=== PATIENT | female | born 2000 | race Two or more races ===

== ENCOUNTER 2024-09-16 16:32 | Emergency (ER) | payer MEDICAID, SELFPAY ==
[2024-09-16 16:49] VITALS: BP 125/81; PULSE 91; RESP 20; TEMP 36.7; O2SAT 99; BMI 32.8
--- NOTE | 2024-09-16 16:56 | XR_ITS ---
Examination: Foot, right, 3 views Technique: AP, oblique, lateral views foot, 3 views Date and time of exam: September 16, 2024 1700 hours INDICATIONS: Injury to the foot today, foot pain FINDINGS: No acute fracture No dislocation No foreign body IMPRESSION: No acute fracture
--- NOTE | 2024-09-16 16:57 | PD.EDRME ---
Rapid Medical Screening Exam RME Arrival date/time: 09/16/24 16:32 24-year-old female presents emergency department today with complaints of foreign body right foot patient believes she has a toothpick embedded in her foot Chief Complaint: Ankle/Foot Injury Time Seen by Provider: 09/16/24 16:36 Vital signs: Vital Signs Temperature 98.1 F 09/16/24 16:49 Pulse Rate 91 09/16/24 16:49 Respiratory Rate 20 09/16/24 16:49 Blood Pressure 125/81 09/16/24 16:49 Pulse Oximetry (%) 99 09/16/24 16:49 Oxygen Delivery Method Room Air 09/16/24 16:49
[2024-09-16] MEDS: HYDROcodone/APAP 5/325 TABLET 1 TAB PO (17:25)
--- NOTE | 2024-09-16 19:45 | PD.EDANKLE ---
Lower Extremity Injury RME/HPI General Chief Complaint: Ankle/Foot Injury Stated Complaint: STABBED RIGHT FOOT WITH TOOTHPICK Time Seen by Provider: 09/16/24 16:36 Arrival date/time: 09/16/24 16:32 24-year-old female no significant past medical history presents emergency department complaining of foreign body to right foot after stepping on a wooden toothpick that occurred earlier today. Patient reports up-to-date with her tetanus vaccine. Mode of arrival: wheelchair Limitations: physical limitation RME / HPI RME / HPI Narrative: 09/16/24 16:32 24-year-old female presents emergency department today with complaints of foreign body right foot patient believes she has a toothpick embedded in her foot Related Data Home Medications ?Medication ?Instructions ?Recorded ?Confirmed prenat.vits,itzel,ool-hoto-egyax 1 tab PO QDAY 03/06/22 06/30/22 Previous Rx's ?Medication ?Instructions ?Recorded lanolin 50 % topical ointment 1 applic topical TID PRN skin 07/02/22 irritation #15 tubes ibuprofen 600 mg tablet 600 mg PO Q8H PRN pain #20 tabs 09/16/24 Allergies Allergy/AdvReac Type Severity Reaction Status Date / Time No Known Allergies Allergy Verified 09/16/24 16:34 Review of Systems Review of Systems Systems Reviewed: All systems reviewed, normal except as documented Constitutional Constitutional: Reports system reviewed and no additional complaints, except as documented, Denies body ache(s), Denies chills and Denies fever(s) Eyes Eyes: Reports system reviewed and no additional complaints, except as documented and Denies change in vision ENT Ears, Nose, Mouth, and Throat: Reports system reviewed and no additional complaints, except as documented, Denies disequilibrium, Denies dizziness, Denies sore throat and Denies vertigo Cardiovascular Cardiovascular: Reports system reviewed and no additional complaints, except as documented, Denies chest pain and Denies dyspnea Respiratory Respiratory: Reports system reviewed and no additional complaints, except as documented, Denies chest congestion, Denies cough and Denies dyspnea Gastrointestinal Gastrointestinal: Reports system reviewed and no additional complaints, except as documented, Denies abdominal pain, Denies nausea and Denies vomiting Musculoskeletal Musculoskeletal: Reports system reviewed and no additional complaints, except as documented, Denies abnormal gait and Denies arthralgias Integumentary/Breasts Skin/Breast: Reports system reviewed and no additional complaints, except as documented, Denies erythema, Denies rash and Reports wounds Neurologic Neurologic: Reports system reviewed and no additional complaints, except as documented, Denies abnormal gait, Denies disequilibrium, Denies dizziness and Denies vertigo Past Medical History Past Medical History NEUROLOGIC: Negative Neurological Disorders or Seizures CARDIAC: Negative Cardiac Disorders or Congestive Heart Failure RESPIRATORY: Negative Chronic Obstructive Pulmonary Disease (COPD) or Asthma GASTROINTESTINAL: Negative Gastrointestinal Disorders or Hepatitis GENITOURINARY: Negative Genitourinary Disorders or Renal Disease MUSCULOSKELETAL: Negative Musculoskeletal Disorders ENDOCRINE: Negative Endocrine Disorders, Diabetes Mellitus Type 1 or Diabetes Mellitus Type 2 HEMATOLOGIC: Negative Blood Disorders or Sickle Cell Disease OTHER HISTORY: Negative Hospitalization, Autoimmune Disease, Down Syndrome, Developmental Delay, Shingles, Falls, Blood Transfusions, Anesthesia Reactions, MRSA, VRSA, Vancomycin-Resistant Enterococci, Human Immunodeficiency Virus (HIV), Chicken Pox, Measles, Mumps, Rubella (Indian Measles), Pertussis, Clostridium Difficile or Cancer Family History FAMILY HISTORY: Positive Family Surgery (MATERNAL AUNT- STOMACH TUMOR REMOVAL. C/S,); Negative Family Psychiatric Problems, Family Respiratory Disorders, Family Cardiac Disorders, Family Gastrointestinal Problems, Family Cancer or Family Anesthesia Reaction Social History SMOKING STATUS: Never smoker SECOND HAND EXPOSURE: No ED Exam General Limitations: Present physical limitation General appearance: Present alert and in no apparent distress Head Head exam: Present atraumatic Eye Eye exam: Present normal appearance, PERRL and EOMI ENT ENT exam: Present normal exam, normal oropharynx and mucous membranes moist Neck Neck exam: Present normal inspection, full ROM and trachea midline Chest Chest inspection: Present normal inspection and symmetric chest wall rise Respiratory Respiratory exam: Present normal lung sounds bilaterally Cardiovascular Cardiovascular exam: Present regular rate, normal rhythm and normal heart sounds Abdominal Exam Abdominal exam: Present soft and normal bowel sounds Extremities Exam Extremities exam: Present normal inspection and full ROM Expanded Lower Extremity Exam Bottom foot image: 1. Small 2 mm opening possibly from entry wound from toothpick. Neurovascular/Tendon exam: Present normal capillary refill Gait: observed and limited by pain Back Exam Back exam: Present normal inspection and full ROM Neurological Exam Neurological exam: Present alert, oriented X3 and CN II-XII intact Psychiatric Psychiatric exam: Present normal affect and normal mood Skin Skin exam: Present warm, dry, intact and normal color Course Quality Measures none Orders Category Date Time Status Crutches .NOW Care 09/16/24 19:52 Active XR foot comp RT min 3V Stat Exams 09/16/24 16:56 Completed HYDROcodone*/APAP 5/325 [[place] 5/325] Med 09/16/24 16:56 Discontinued 1 tab PO X1 ONE Vital Signs Vital signs: Vital Signs Temperature 98.1 F 09/16/24 16:49 Pulse Rate 91 09/16/24 16:49 Respiratory Rate 20 09/16/24 16:49 Blood Pressure 125/81 09/16/24 16:49 Pulse Oximetry (%) 99 09/16/24 16:49 Oxygen Delivery Method Room Air 09/16/24 16:49 99% room air within normal limits Extremity Injury, Lower MDM Narrative MDM Narrative:: 24-year-old female no significant past medical history presents emergency department complaining of foreign body to right foot after stepping on a wooden toothpick that occurred earlier today. Patient reports up-to-date with her tetanus vaccine. On exam right plantar foot small 2 mm opening observed but unable to see end of toothpick to safely dislodge it. Patient does have some pain and tenderness to palpation. Foreign body was not seen on x-ray. No obvious signs of infection. Patient's right foot is neurovascularly intact. Case discussed with attending Dr. Monzon recommends discharge with no antibiotics and follow-up with primary care provider. Patient given crutches and instructed to have close follow-up with primary care provider and return to emergency department for any worsening signs of infection or as needed. Patient data External records reviewed:: [facility] previous records Clinical information provided by:: patient Social determinants that could affect healthcare access:: none Patient has the following chronic illnesses:: See chart How is presenting disease/condition affected by chronic disease/condition?: uneffected by Evaluation data The following diagnostics were reviewed and interpreted by me:: radiology exam(s) Lab and/or radiology exams considered but not ordered:: Ordered Interpretation Summary: Interpreted by me Medications / Prescriptions Medications or Prescriptions considered but not ordered:: Ordered Medication administrations:: Medication Administration History Discontinued Medications Hydrocodone Bitart/Acetaminophen (Hydrocodone/Apap 5/325 Tablet) 1 tab PO X1 ONE Stop: 09/16/24 16:57 Last Admin: 09/16/24 17:25 Dose: 1 tab Documented By: Given Consultations Consultation(s) initiated? (list below): No Diagnosis Extremity Injury, Lower Differential Diagnosis: other (Cellulitis, foreign body) Most likely diagnosis given after review of the tests above:: Foreign body foot Admission Indicated Admission indicated?: not indicated Admission Request Was there a request for admission?: No Disposition Plan Disposition Plan: Discharge Discharge Attestation Discharge Attestation: The patient and all family members were given an opportunity to ask questions and understood the discharge instructions. Discharge instructions specifically effects, indications for sooner follow up or return to the emergency department, and the expected course of current diagnosis. Patient condition: Stable Discharge Plan Plan Patient Disposition: HOME (Self Care) Disposition Comment: Stable Prescriptions/Referrals Prescriptions/Med Rec: New ibuprofen 600 mg tablet 600 mg PO Q8H PRN (Reason: pain) Qty: 20 0RF No Action prenat.vits,itzel,[id number] Tablet 1 tab PO QDAY lanolin 50 % ointment 1 applic topical TID PRN (Reason: skin irritation) Qty: 15 0RF Referrals: Teena Cartagena PA-C [Primary Care Provider] - In 1 week Problem List Clinical Impression: Foreign body in foot Patient/Caregiver Discharge Instructions Discharge Activity: activity as tolerated Education Materials: ED Foreign Body Soft Tissue Additional Instructions: Take ibuprofen as needed for pain. Monitor right foot closely for any signs of infection. Follow-up with primary care provider in 24 to 40 hours. Return to emergency department for any worsening symptoms or as needed. Print Language: Sami Stand Alone Forms: Anita Award Info., Patient Portal Info Letter COY/BAO Supervising Physician COY/BAO Supervising Physician: Dr. Monzon
== END 2024-09-16 21:00 | disposition home or self-care (01) ==
PROVIDERS: Emergency Provider Emergency Medicine; PCP Physician Assistant
DX: S90.851A Superficial foreign body, right foot, initial encounter (principal); W45.8XXA Other foreign body or object entering through skin, initial encounter
CPT/HCPCS: 73630; 99283; A9270

== ENCOUNTER 2024-09-21 09:48 | Observation (INO) | payer MEDICAID, SELFPAY ==
[2024-09-21] VITALS (9 sets, daily range): BP systolic 102–131; BP diastolic 68–87; PULSE 73–161; RESP 15–25; TEMP 36.3–37.4; O2SAT 99–100; BMI 32.8; BMI 27.7
--- NOTE | 2024-09-21 10:18 | PD.EDRME ---
Rapid Medical Screening Exam RME Arrival date/time: 09/21/24 09:48 24-year-old female presents emergency department today stating that 5 days ago she punctured her foot with a toothpick patient was seen here in the emergency department was given prescription for antibiotics but reports symptoms worsened Chief Complaint: Extremity Injury, Lower Time Seen by Provider: 09/21/24 10:02 Vital signs: Vital Signs Temperature 98.3 F 09/21/24 10:01 Pulse Rate 89 09/21/24 10:01 Respiratory Rate 18 09/21/24 10:01 Blood Pressure 116/79 09/21/24 10:01 Pulse Oximetry (%) 100 09/21/24 10:01 Oxygen Delivery Method Room Air 09/21/24 10:01
[2024-09-21 12:14] LABS: Lactate (Lactic Acid) 1.1 mMol/L (0.4-2.0)
[2024-09-21 12:19] LABS: Basophils % (Auto) 0 % (0-2.5); Eosinophils # (Auto) 0.1 Thou/mm3 (0.0-0.5); Eosinophils % (Auto) 1 % (0-10); Hematocrit 37.5 % (36.0-46.0); Hemoglobin 12.7 g/dL (12.0-16.0); Immature Granulocytes % (Auto) 0 % (0-0); Immature Granulocytes Auto 0.04 Thou/mm3 (0.00-0.00); Lymphocytes # (Auto) 2.6 Thou/mm3 (1.0-4.8); Lymphocytes % (Auto) 25 % (10-50); Mean Corpuscular HGB Conc 33.9 g/dl (31.0-37.0); Mean Corpuscular Hemoglobin 28.5 pg (25.0-35.0); Mean Corpuscular Volume 84 fL (80-100); Monocytes # (Auto) 0.7 Thou/mm3 (0.0-0.8); Monocytes % (Auto) 7 % (0-12); Neutrophils # (Auto) 6.8 Thou/mm3 (1.8-7.7); Neutrophils % (Auto) 67 % (37-80); Nucleated Red Blood Cell % 0 /100 WBC (0); Platelet Count 388 Thou/mm3 (140-440); RDW Standard Deviation 39.8 fL (36.4-46.3); Red Blood Count 4.46 Miln/mm3 (4.00-5.20); White Blood Count 10.3 Thou/mm3 (3.6-11.0)
--- NOTE | 2024-09-21 12:27 | PD.EDLOWEX ---
Lower Extremity Injury RME/HPI General Chief Complaint: Extremity Injury, Lower Stated Complaint: R FOOT SWELLING X 5 DAYS Time Seen by Provider: 09/21/24 10:02 Arrival date/time: 09/21/24 09:48 RME / HPI RME / HPI Narrative: 09/21/24 09:48 24-year-old female presents emergency department today stating that 5 days ago she punctured her foot with a toothpick patient was seen here in the emergency department was given prescription for antibiotics but reports symptoms worsened DR. FAJARDO MAIN ED EVALUATION: 24 year old female presents to the Emergency Department with complaint of right foot swelling with associated pain onset 5 days; she punctured her foot 5 days ago and was seen here and discharged with antibiotics but symptoms have not improved. Symptoms are moderate. Related Data Home Medications ?Medication ?Instructions ?Recorded ?Confirmed prenat.vits,itzel,[id number] 1 tab PO QDAY 03/06/22 06/30/22 Previous Rx's ?Medication ?Instructions ?Recorded lanolin 50 % topical ointment 1 applic topical TID PRN skin 07/02/22 irritation #15 tubes ibuprofen 600 mg tablet 600 mg PO Q8H PRN pain #20 tabs 09/16/24 Allergies Allergy/AdvReac Type Severity Reaction Status Date / Time vancomycin Allergy Severe Hives Verified 09/21/24 15:33 Review of Systems Review of Systems Systems Reviewed: All systems reviewed, normal except as documented Narrative Review of Systems: GEN: No fever, no chills, no weight loss EYES: No discharge, no visual changes, no pain HEENT: No ear pain, no congestion, no sore throat PULM: No shortness of breath, no cough, no congestion CV: No chest pain, no dyspnea on exertion, no palpitations GI: No nausea, no vomiting, no diarrhea, no pain, no constipation : No frequency, no urgency and no dysuria MUSC/SKEL: + right foot swelling with associated pain, no back pain SKIN: No rash PSYCH: No hallucinations, no depression HEME/LYMPH: No easy bleeding or bruising tendencies NEURO: No weakness, no headache Past Medical History Past Medical History NEUROLOGIC: Negative Neurological Disorders or Seizures CARDIAC: Negative Cardiac Disorders or Congestive Heart Failure RESPIRATORY: Negative Chronic Obstructive Pulmonary Disease (COPD) or Asthma GASTROINTESTINAL: Negative Gastrointestinal Disorders or Hepatitis GENITOURINARY: Negative Genitourinary Disorders or Renal Disease MUSCULOSKELETAL: Negative Musculoskeletal Disorders ENDOCRINE: Negative Endocrine Disorders, Diabetes Mellitus Type 1 or Diabetes Mellitus Type 2 HEMATOLOGIC: Negative Blood Disorders or Sickle Cell Disease OTHER HISTORY: Negative Hospitalization, Autoimmune Disease, Down Syndrome, Developmental Delay, Shingles, Falls, Blood Transfusions, Anesthesia Reactions, MRSA, VRSA, Vancomycin-Resistant Enterococci, Human Immunodeficiency Virus (HIV), Chicken Pox, Measles, Mumps, Rubella ([place] Measles), Pertussis, Clostridium Difficile or Cancer Family History FAMILY HISTORY: Positive Family Surgery; Negative Family Psychiatric Problems, Family Respiratory Disorders, Family Cardiac Disorders, Family Gastrointestinal Problems, Family Cancer or Family Anesthesia Reaction Social History SMOKING STATUS: Never smoker SECOND HAND EXPOSURE: No ED Exam Narrative Physical exam: GENERAL APPEARANCE: alert and oriented x 4, well-developed, well-nourished VITALS: All vitals were reviewed and the pulse ox is 100% on room air, which is normal according to my interpretation. HEENT: Normocephalic, atraumatic; pupils equal, round, reactive to light; EOMI; mucous membranes pink, moist; oropharynx clear NECK: Supple LUNGS: CTABL; no wheezes, no rales, no rhonchi HEART: Regular rate, regular rhythm; normal S1, S2; no murmurs ABDOMEN: non distended; normal BS; soft, no tenderness, no guarding, no rebound; no masses, no organomegaly, no hernia BACK: no CVA tenderness EXTREMITIES: right foot swelling NEUROLOGIC: awake; alert and oriented x4; cranial nerves II-XII grossly intact; no focal sensory or motor deficits PSYCHIATRIC: appropriate mood and affect SKIN: warm, dry, normal color; no rashes Course Quality Measures none Orders Category Date Time Status CT Screening NOW Care 09/21/24 13:05 Active EKG (ED ONLY) *Do not use* NOW Care 09/21/24 14:50 Completed Insert IV NOW Care 09/21/24 12:[address] LE RT w con Stat Exams 09/21/24 13:05 Completed EKG (ED Only) Stat Exams 09/21/24 14:50 Draft Blood Culture (Lab) Stat Lab 09/21/24 11:58 Received CBC Stat Lab 09/21/24 11:58 Completed CMP [Comprehensive Metabolic Panel] Stat Lab 09/21/24 11:58 Completed ESR [Sed Rate (ESR)] Stat Lab 09/21/24 11:58 Completed Lactate (Lactic Acid) Stat Lab 09/21/24 11:58 Completed Procalcitonin Stat Lab 09/21/24 11:58 Completed Urinalysis Stat Lab 09/21/24 15:21 Completed Urine Culture Stat Lab 09/21/24 11:38 Received DiphenhydrAMINE INJ [Benadryl Inj] Med 09/21/24 14:43 Discontinued 50 mg IVP X1 ONE MethylPREDNISolone. [SoluMEDROL Inj] Med 09/21/24 14:51 Discontinued 125 mg IVP X1 ONE MethylPREDNISolone. [SoluMEDROL Inj] Med 09/21/24 14:49 Discontinued 40 mg IVP X1 ONE Piper/Tazo 3.375 gm [Zosyn] Med 09/21/24 11:38 Discontinued 3.375 gm in 50 ml IV X1 Vancomycin Inj 1,000 mg Med 09/21/24 11:39 Discontinued Sodium Chloride 0.9% 250 ml [Ns] 250 ml IV X1 Vital Signs Vital signs: Vital Signs Temperature 98.3 F 09/21/24 10:01 Pulse Rate 89 09/21/24 10:01 Respiratory Rate 18 09/21/24 10:01 Blood Pressure 116/79 09/21/24 10:01 Pulse Oximetry (%) 100 09/21/24 10:01 Oxygen Delivery Method Room Air 09/21/24 10:01 Extremity Injury, Lower MDM Narrative MDM Narrative:: IJeaneth am scribing for and in the presence of Dr. Fajardo. Patient data External records reviewed:: [facility] previous records (Reviewed last ED visit dated 09/16/24, discharged with the following: Foreign body in foot) Clinical information provided by:: patient Social determinants that could affect healthcare access:: none Patient has the following chronic illnesses:: Denies any PMHx, surgeries, daily medications, or known allergies. How is presenting disease/condition affected by chronic disease/condition?: no chronic disease Evaluation data The following diagnostics were reviewed and interpreted by me:: lab results, radiology exam(s) and EKG tracing(s) (EKG done at 1456 hours: sinus tachycardia, rate 102, QTc 466,) Lab and/or radiology exams considered but not ordered:: none Interpretation Summary: Procedure(s): CT LE RT w con Accession Number(s): [id number] cc: Murray Correa MD; Gladis Barnes MD; Sidney Dhaliwal MD~ Examination: CT right ankle, with intravenous contrast. 2-D sagittal reconstructions. 2-D coronal reconstructions. 3-D reconstructions. Date and time of exam:September 21, 2024 1345 hrs. Indications: Redness swelling and pain beginning 6 days ago CTDI: vol (mGy):3.73 DLP: (mGycm):111 Technique: Multiple 1.25 mm axial sections of the right ankle with intravenous contrast, 50 cc Isovue-370 have been obtained. 2-D sagittal and coronal reconstructions have been obtained. 3-D reconstructions have been obtained. Low dose protocols were performed. One or more of the following dose reduction techniques were used; automated exposure control, adjustment of the mA and/or KV according to patient size, use of iterative reconstruction technique. Findings: Edema in the subcutaneous fatty tissues surrounding the foot and ankle, especially on the lateral side No soft tissue abscess or hematoma No cortical bone erosion Impression: No occult fracture or avascular necrosis or cortical bone destruction However, MRI foot without contrast follow-up would best assess for bone marrow edema, occult fracture, stress fracture as well as ligamentous and tendon abnormality Dictated By: Sidney Dhaliwal MD Medications / Prescriptions Medications or Prescriptions considered but not ordered:: none Medication administrations:: Medication Administration History Acetaminophen (Acetaminophen 325 Mg Tablet) 650 mg PO Q6H PRN PRN Reason: Fever >101.5 Stop: 10/21/24 15:11 Acetaminophen (Acetaminophen Supp 650 Mg Supp) 650 mg [place] Q6H PRN PRN Reason: PAIN SCALE 1-3 (mild Stop: 10/21/24 15:11 Hydrocodone Bitart/Acetaminophen (Hydrocodone/Apap 10/325 Tab) 1 tab PO Q4HR PRN PRN Reason: PAIN SCALE 7-10 (Severe Stop: 09/26/24 15:11 Enoxaparin Sodium (Enoxaparin Sod Inj 40 Mg/0.4 Ml Syringe) 40 mg SC QDAY [facility] Stop: 10/05/24 15:14 Last Admin: 09/21/24 15:38 Dose: 40 mg Documented By: GM Piperacillin/Tazobactam/Dextrose (Zosyn) 3.375 gm in 50 mls @ 12.5 mls/hr IV Q8HR [facility] Stop: 09/28/24 15:29 Last Admin: 09/21/24 15:42 Dose: 12.5 mls/hr Documented By: GM Doxycycline Hyclate 100 mg/ (Sodium Chloride) 100 mls @ 100 mls/hr IV BID LUCAS Stop: 09/28/24 20:59 Ondansetron HCl (Ondansetron Inj 2 Mg/Ml Inj 2 Ml) 4 mg IV Q6H PRN; Protocol PRN Reason: NAUSEA OR VOMITING Stop: 10/21/24 15:11 Oxycodone/Acetaminophen (Oxycodone/Apap 5/325 Tablet) 1 tab PO Q6H PRN PRN Reason: PAIN SCALE 4-6 (Moderate Stop: 09/26/24 15:11 Discontinued Medications Diphenhydramine HCl (Diphenhydramine Inj 50 Mg/Ml Vial) 50 mg IVP X1 ONE Stop: 09/21/24 14:44 Last Admin: 09/21/24 14:45 Dose: 50 mg Documented By: GM Piperacillin/Tazobactam/Dextrose (Zosyn) 3.375 gm in 50 mls @ 100 mls/hr IV X1 ONE Stop: 09/21/24 12:07 Last Infusion: 09/21/24 13:05 Dose: Infused Documented By: Admin: 09/21/24 12:33 Dose: 100 mls/hr Documented By: Vancomycin HCl 1,000 mg/ (Sodium Chloride) 250 mls @ 150 mls/hr IV X1 ONE Stop: 09/21/24 13:18 Last Infusion: 09/21/24 14:40 Dose: 0 mls/hr Documented By: Admin: 09/21/24 13:54 Dose: 150 mls/hr Documented By: Methylprednisolone Sodium Succinate (Methylprednisolone Sod Succ 40 Mg Vial) 40 mg IVP X1 ONE Stop: 09/21/24 14:50 Last Admin: 09/21/24 14:52 Dose: Not Given Documented By: Non-Admin Reason: Discontinued Methylprednisolone Sodium Succinate (Methylprednisolone Sod Succ 40 Mg Vial) 125 mg IVP X1 ONE Stop: 09/21/24 14:52 Last Admin: 09/21/24 15:27 Dose: Not Given Documented By: GM Non-Admin Reason: Cancelled by Provider see above Consultations Consultation(s) initiated? (list below): Yes Consultation #1 (Physician, Specialty, Details): Discussed test HPI, PMHx, lab, radiology results and/or management with hospitalist. Will admit for further evaluation and management. Accepts patient for admission. Time: 13:00 Diagnosis Extremity Injury, Lower Differential Diagnosis: other (foreign body, cellulitis, osteolytic lesion of the foot) Most likely diagnosis given after review of the tests above:: As noted below. Admission Indicated Admission indicated?: indicated Admission Request Was there a request for admission?: Yes Admission Attestation Admission request attestation: Discussed case with [] from Hospitalist service regarding admission. Discussed patients ED course, exam findings, labs, and radiology results. The Hospitalist [agrees,declines] to accept the patient for admission. Disposition Plan Disposition Plan: Admit
[2024-09-21] MEDS: PIPER/TAZO 3.375 GM 3.375 GM/50 ML BAG IV ×3 (12:33→21:25)
[2024-09-21 12:41] LABS: Sed Rate (ESR) 33 mm/hr (0-20)
[2024-09-21 12:44] LABS: Alanine Aminotransferase 15 U/L (10-49); Albumin/Globulin Ratio 1.9 (1.2-2.2); Alkaline Phosphatase 82 U/L (46-116); Anion Gap 10 (7-16); Aspartate Amino Transferase 16 U/L (0-34); BUN/Creatinine Ratio 15 Ratio (12-20); Bilirubin,Total 0.5 mg/dL (0.3-1.2); Blood Urea Nitrogen 9 mg/dL (9-23); Carbon Dioxide 25.5 mMol/L (20.0-31.0); Chloride 104 mMol/L (98-107); Creatinine (Component) 0.6 mg/dL (0.6-1.3); Estimated Creatinine Clearance 116.8 mL/min (>60); Globulin 2.6 gm/dL (2.3-3.5); Glucose 91 mg/dL (74-106); Osmolality,Calculated 276 (275-295); Potassium 3.9 mMol/L (3.4-5.1); Procalcitonin < 0.04 ng/ml (0.0-0.49); Sodium 139 mMol/L (136-145); Total Protein 7.6 gm/dL (5.7-8.2); eGFR > 60 See Note
--- NOTE | 2024-09-21 13:05 | XR_ITS ---
Examination: CT right ankle, with intravenous contrast. 2-D sagittal reconstructions. 2-D coronal reconstructions. 3-D reconstructions. Date and time of exam:September 21, 2024 1345 hrs. Indications: Redness swelling and pain beginning 6 days ago CTDI: vol (mGy):3.73 DLP: (mGycm):111 Technique: Multiple 1.25 mm axial sections of the right ankle with intravenous contrast, 50 cc Isovue-370 have been obtained. 2-D sagittal and coronal reconstructions have been obtained. 3-D reconstructions have been obtained. Low dose protocols were performed. One or more of the following dose reduction techniques were used; automated exposure control, adjustment of the mA and/or KV according to patient size, use of iterative reconstruction technique. Findings: Edema in the subcutaneous fatty tissues surrounding the foot and ankle, especially on the lateral side No soft tissue abscess or hematoma No cortical bone erosion Impression: No occult fracture or avascular necrosis or cortical bone destruction However, MRI foot without contrast follow-up would best assess for bone marrow edema, occult fracture, stress fracture as well as ligamentous and tendon abnormality
[2024-09-21] MEDS: Vancomycin Inj 1,000 MG in SODIUM CHLORIDE 0.9% 250 ML 250 ML 150 MG IV (13:54)
--- NOTE | 2024-09-21 14:40 | PC.NURSE ---
RN AT BEDSIDE; PT C/O ITCHINESS ON SCALP AND BACK AND FACE. REDNESS NOTED TO BACK AREA AND FACE. VANCOMYCIN PAUSED AT THIS TIME. DR. VARGHESE MADE AWARE.
[2024-09-21] MEDS: DiphenhydrAMINE INJ 50 MG/ML VIAL IVP (14:45)
--- NOTE | 2024-09-21 14:45 | PC.NURSE ---
@1445- RN AT BEDSIDE MEDICATING PT WITH IV BENADRYL 50MG; PT EDUCATED ON SIDE EFFECTS OF MEDICATION. @1446- PT BECAME RESTLESS & ANXIOUS; PT STATED FEELING DIZZY AND I CAN'T BREATHE. PT BECAME TACHYCARDIC. PT PLACED IN OXY MASK AT 5L. [employer]OUNA INSTRUCTIONAL TECHNOLOGY INSTRUCTOR CALLED TO BEDSIDE AND VERBAL ORDERS RECEIVED FOR EKG. RN STILL AT BEDSIDE. @1450- PT'S HR DECREASED TO 110'S AND STATES FEELING BETTER.
--- NOTE | 2024-09-21 14:50 | EKG_ITS ---
[facility] Test Date: 2024-09-21 Pat Name: ASHLEY JOHNSON Department: Room: - Gender: Female Ice Sc[employer]per: : 2000 Requested By: Paola Frazier Order Number: [id number] Reading MD: Paola Frazier Measurements Intervals [place] Rate: 102 P: 42 HI: 115 QRS: 59 QRSD: 84 T: 30 QT: 357 QTc: 466 Interpretive Statements SINUS TACHYCARDIA WITH SHORT HI INTERVAL NONSPECIFIC T-WAVE ABNORMALITY ABNORMAL RHYTHM ECG No previous ECG available for comparison /store/S0/[id number]/ecg/[id number].pdf
--- NOTE | 2024-09-21 15:15 | ESHP_ITS ---
<Statement entered by Josh Palencia MD - 09/27/24 15:04> I reviewed above note and agree with findings and plans. I have also personally examined the patient with medicine team and went over assessment and plan with medical team including rn intern and resident physician. Documentation for date of: 09/21/24 HPI History of Present Illness History of present illness: This is an otherwise healthy 24-year-old female without past medical history who presented to ED with a puncture of her right foot. Patient states she stepped barefoot on a toothpick last week and presented to ED on September 16. At the time x-ray was done showing no acute fracture, patient was discharged home. She followed up with her primary who started oral DOXYCYCLINE which she has been taking. She returns to the ED with persistent and subjectively worsening lower extremity symptoms including pain and swelling. This was seen was consulted for potential admission for IV ANTIBIOTICS. Last tetanus shot was 3 years ago when she had her . Denies fevers, chills, chest pain, SOB, cough, GI or urinary symptoms, lower extremity swelling, discharge or bleeding from wound site. ED COURSE: Afebrile, all vitals within normal limits. CBC and CMP were benign except for ESR of 30. UA showed WBCs 27, leukocyte esterase 3+, patient asymptomatic. Pending CT right lower extremity PMHx: Full-term PSHx: 2021 MEDS: DOXYCYCLINE ALLERGIES: VANCOMYCIN (facial swelling, agitation) SH: Denies alcohol, tobacco or drug use Exam Vital Signs Temp Pulse Resp BP Pulse Ox O2 Del Method O2 Flow Rate 98.1 F 95 17 128/85 H 99 Room Air 5 09/21/24 14:46 09/21/24 15:03 09/21/24 15:03 09/21/24 15:03 09/21/24 15:03 09/21/24 15:03 09/21/24 14:46 Narrative Exam GENERAL * Normal-appearing adult female, in mild distress secondary to pain. HEENT * NCAT.?LAURA. Oral mucosa is moist. Patent Nares NECK * Supple, nontender, no thyromegaly, no meningismus, no JVD, no step offs CHEST * Tachycardic, regular rhythm, no m/g/r * CTAB, no w/r/r. Symmetrical chest rise. No intercostal subcostal retraction * Atraumatic, nontender, no crepitus, symmetrical expansion. ABDOMEN * Soft, flat, nontender. No guarding/rebound tenderness/masses. * Bowel sounds presents EXTREMITIES * Normal left extremity. Exam * Right lower extremity: Cellulitis of proximal aspect of right big toe measuring about 2 cm in diameter, erythematous, warm and tender to palpation. Puncture wound visible, without signs of discharge, foreign object or bleeding. Mild swelling of distal right foot with no overlying skin changes. SKIN * Warm and dry, no jaundice/rashes. NEUROMUSCULAR * No lumbar or midline, no CVA, no paraspinal muscle spasm or tenderness. * Moves all 4 extremities well, with full ROM and good CSM. * WEST x4, CN II-XII grossly intact. * No focal neurologic deficits. PSYCHIATRY * Normal mood and affect, cooperative, no SI or HI or hallucinations. Results: Labs 09/21/24 11:58 09/21/24 11:58 Labs: Short CBC 09/21/24 Range/Units 11:58 WBC 10.3 (3.6-11.0) Thou/mm3 Hgb 12.7 (12.0-16.0) g/dL Hct 37.5 (36.0-46.0) % Plt Count 388 (140-440) Thou/mm3 BMP 09/21/24 11:58 Sodium 139 Potassium 3.9 Chloride 104 Carbon Dioxide 25.5 BUN 9 Creatinine 0.6 Glucose 91 Calcium 10.0 Liver Function 09/21/24 Range/Units 11:58 Total Bilirubin 0.5 (0.3-1.2) mg/dL AST 16 (0-34) U/L ALT 15 (10-49) U/L Alkaline Phosphatase 82 (46-116) U/L Albumin 5.0 (3.5-5.0) gm/dL Quality Measures Quality Measures none Medications Home Medications and Allergies Home Medications ?Medication ?Instructions ?Recorded ?Confirmed ?Type prenat.vits,itzel,vix-kree-fxnuw 1 tab PO QDAY 03/06/22 06/30/22 History Allergies Allergy/AdvReac Type Severity Reaction Status Date / Time vancomycin Allergy Severe Hives Verified 09/21/24 15:33 Visit Medications Discontinued Medications Diphenhydramine HCl (Diphenhydramine Inj 50 Mg/Ml Vial) 50 mg IVP X1 ONE Stop: 09/21/24 14:44 Last Admin: 09/21/24 14:45 Dose: 50 mg Piperacillin/Tazobactam/Dextrose (Zosyn) 3.375 gm in 50 mls @ 100 mls/hr IV X1 ONE Stop: 09/21/24 12:07 Last Infusion: 09/21/24 13:05 Dose: Infused Vancomycin HCl 1,000 mg/ (Sodium Chloride) 250 mls @ 150 mls/hr IV X1 ONE Stop: 09/21/24 13:18 Last Infusion: 09/21/24 14:40 Dose: 0 mls/hr Methylprednisolone Sodium Succinate (Methylprednisolone Sod Succ 40 Mg Vial) 40 mg IVP X1 ONE Stop: 09/21/24 14:50 Last Admin: 09/21/24 14:52 Dose: Not Given Methylprednisolone Sodium Succinate (Methylprednisolone Sod Succ 40 Mg Vial) 125 mg IVP X1 ONE Stop: 09/21/24 14:52 Assessment & Plan Plan In summary: This is an otherwise healthy 24-year-old female with no PMHx presenting with cellulitis of distal right lower extremity secondary to puncture wound. She had failed outpatient DOXYCYCLINE therapy. Admitted under observation oral ANTIBIOTICS and pain control. He was given VANCOMYCIN and ZOSYN. She was found to have an allergic reaction to VANCOMYCIN after administration, with facial swelling, agitation and tachycardia. She was given one-time METHYLPREDNISOLONE, symptoms appear to have resolved except for mild tachycardia. No signs of respiratory compromise at the time when we saw the patient. She was on room air, breathing comfortably. Cardiac exam showed tachycardia but regular rhythm. EKG showed sinus tachycardia with short MS interval, no acute ST changes. Lung exam benign. Right lower extremity cellulitis Secondary to toothpick puncture that occurred last week. She failed oral ANTIBIOTICS, returning with subjectively worsening right lower extremity swelling and pain. Vitals within normal limits, CBC and CMP all WNL except for ESR of 30. CT showed no occult fracture or avascular necrosis or cortical bone destruction. No signs of systemic infection, compartment syndrome or abscess. Completed tetanus shot 2 years ago. No signs of systemic infection. Will admit under observation and start IV ABX. Will follow-up with MRI if symptoms worsen or do not improve. ? Continue ZOSYN 3.375 q.8h. (09/21 to present) ? Continue DOXYCYCLINE 100 mg BID (09/21 to present) ? Pain control ? Wound care ? Daily labs Sinus tachycardia On exam patient noted to be tachycardic. Likely 2/2 pain versus agitation versus allergic reaction to VANCOMYCIN. EKG shows sinus tachycardia with short MS interval, no acute ST changes. VANCOMYCIN has been discontinued. No chest pain or shortness of breath. ? Pain control as above ? Continue to monitor Health maintenance Diet: Regular diet GI prophylaxis: Not indicated DVT prophylaxis: HEPARIN subcu Antibiotics: Zosyn and doxy CODE STATUS: Full code Disposition: Observation for right lower extremity cellulitis Senior Resident Attestation: The patient is a 24-year-old female with no significant past medical history presented to ED with chief complaint of puncture wound of her right anterior foot was found to have cellulitis of right foot. Her vitals were stable, labs were within normal limits. Physical examination was significant for erythema posterior to the base of great toe, and tender to touch. UA revealed asymptomatic bacteriuria. The patient was initially started on vancomycin, and was found to have allergic reaction to vancomycin and reported having lip swelling, agitation and tachycardia for which she was given methylprednisone after which her symptoms were improving. EKG revealed sinus tachycardia with short MS interval. The patient was later started on Zosyn and doxycycline, CT of right foot was unremarkable. The patient was admitted to Medr unit for further observation. I discussed with and supervised the rn intern physician involved in the care of this patient. I personally saw and examined the patient and discussed the assessment and plan with the entire medicine team, including my attending. I agree with the assessment and plan as documented above. Mendoza Vogel MD PGY2
--- NOTE | 2024-09-21 15:15 | PC.NURSE ---
PT LAYING ON BED QUIETLY AND USING PERSONAL PHONE. NO ACUTE DISTRESS NOTED AT THIS TIME.
[2024-09-21 15:27] LABS: Collection Type, Urine Clean Catch
[2024-09-21] MEDS: ENOXAPARIN SOD INJ 40 MG/0.4 ML SYRINGE SC (15:38)
[2024-09-21 15:40] LABS: Bacteria,Urine Rare; Bilirubin,Urine Negative (Negative); Blood,Urine 1+ (Negative); Clarity,Urine Clear (Clear/Hazy); Color,Urine Lt-Yellow (Lt Yel-Yel); Glucose, Urine Negative (Negative); Ketones,Urine Negative (Negative); Leukocyte Esterase,Urine Negative (Negative); Nitrite,Urine Negative (Negative); Protein,Urine Negative (Neg - Trace); RBC,Urine 3 /hpf (0-3); Specific Gravity,Urine 1.032 (1.001-1.035); Squamous Epithelial Cell,Urine 2 /hpf (0-5); Urobilinogen,Urine Negative mg/dL (0.0-1.0); WBC,Urine 1 /hpf (0-5)
[2024-09-21] MEDS: DOXYCYCLINE INJ 100 MG in SODIUM CHLORIDE 0.9% (P) 100 ML IV (21:25)
[2024-09-22] VITALS: BP 96/59; PULSE 105; RESP 17; TEMP 36.4; O2SAT 99
[2024-09-22 04:00] VITALS: BP 92/56; PULSE 71; RESP 16; TEMP 36.3; O2SAT 98
[2024-09-22] MEDS: PIPER/TAZO 3.375 GM 3.375 GM/50 ML BAG IV (05:42)
[2024-09-22 05:43] LABS: Basophils % (Auto) 0 % (0-2.5); Eosinophils # (Auto) 0.1 Thou/mm3 (0.0-0.5); Eosinophils % (Auto) 2 % (0-10); Hematocrit 33.3 % (36.0-46.0); Hemoglobin 11.3 g/dL (12.0-16.0); Immature Granulocytes % (Auto) 0 % (0-0); Immature Granulocytes Auto 0.03 Thou/mm3 (0.00-0.00); Lymphocytes # (Auto) 3.1 Thou/mm3 (1.0-4.8); Lymphocytes % (Auto) 42 % (10-50); Mean Corpuscular HGB Conc 33.9 g/dl (31.0-37.0); Mean Corpuscular Hemoglobin 28.6 pg (25.0-35.0); Mean Corpuscular Volume 84 fL (80-100); Monocytes # (Auto) 0.7 Thou/mm3 (0.0-0.8); Monocytes % (Auto) 9 % (0-12); Neutrophils # (Auto) 3.5 Thou/mm3 (1.8-7.7); Neutrophils % (Auto) 47 % (37-80); Nucleated Red Blood Cell % 0 /100 WBC (0); Platelet Count 355 Thou/mm3 (140-440); RDW Standard Deviation 40.6 fL (36.4-46.3); Red Blood Count 3.95 Miln/mm3 (4.00-5.20); White Blood Count 7.4 Thou/mm3 (3.6-11.0)
[2024-09-22 06:05] LABS: Alanine Aminotransferase 14 U/L (10-49); Albumin, Serum 4.6 gm/dL (3.5-5.0); Albumin/Globulin Ratio 1.7 (1.2-2.2); Alkaline Phosphatase 76 U/L (46-116); Anion Gap 8 (7-16); Aspartate Amino Transferase 14 U/L (0-34); BUN/Creatinine Ratio 20 Ratio (12-20); Bilirubin,Total 0.3 mg/dL (0.3-1.2); Blood Urea Nitrogen 16 mg/dL (9-23); Calcium 9.9 mg/dL (8.3-10.6); Calcium (Corrected) 9.9 mg/dL (8.5-10.1); Carbon Dioxide 26.4 mMol/L (20.0-31.0); Chloride 106 mMol/L (98-107); Creatinine (Component) 0.8 mg/dL (0.6-1.3); Estimated Creatinine Clearance 80.2 mL/min (>60); Globulin 2.7 gm/dL (2.3-3.5); Glucose 97 mg/dL (74-106); Magnesium 2.3 mg/dL (1.6-2.6); Osmolality,Calculated 280 (275-295); Phosphorous 5.2 mg/dL (2.4-5.1); Potassium 3.9 mMol/L (3.4-5.1); Sodium 140 mMol/L (136-145); Total Protein 7.3 gm/dL (5.7-8.2); eGFR > 60 See Note
[2024-09-22 06:31] VITALS: BP 110/68; PULSE 78; RESP 17; TEMP 36.3; O2SAT 99
[2024-09-22 08:00] VITALS: BP 100/65; PULSE 75; RESP 16; TEMP 36.3; O2SAT 98
[2024-09-22] MEDS: ENOXAPARIN SOD INJ 40 MG/0.4 ML SYRINGE SC (08:28)
[2024-09-22] MEDS: DOXYCYCLINE INJ 100 MG in SODIUM CHLORIDE 0.9% (P) 100 ML IV (08:28)
[2024-09-22 12:00] VITALS: BP 95/57; PULSE 78; RESP 15; TEMP 36.9; O2SAT 97
--- NOTE | 2024-09-22 12:02 | ESDS_ITS ---
<Statement entered by Josh Palencia MD - 09/27/24 15:05> I reviewed above note and agree with findings and plans. I have also personally examined the patient with medicine team and went over assessment and plan with medical team including internal communications manager and resident physician. Planned Discharge Date 09/22/24 DS: Providers Provider Date of admission: 09/21/24 15:12 Primary care physician: Murray Correa MD Admitting Provider: Josh Palencia MD Attending Provider on Admission: Josh Palencia MD Attending Provider on DC: Josh Palencia MD Discharging Provider: Josh Palencia MD DS: Diagnosis Problem List Completed Was Problem List Reviewed/Reconciled?: Yes Hospital Course Hospital Course Hospital course: 24-year-old female with no relevant past medical history was admitted to the hospital on 09/21/2024 due to right lower extremity cellulitis. In the ED patient came in with complaints of right foot swelling after she punctured her foot with a toothpick and she was prescribed oral antibiotics by her primary care physician, but did not improve. Initially patient was afebrile and normotensive initial labs were unremarkable and only brought in for elevated ESR at 33 and UA was positive for bacteria, but patient did not have any symptoms. Initial imaging included foot x-ray which did not show any fractures and lower extremity CT which showed no occult fracture and only edema in the subcutaneous fatty tissue around the foot and ankle. In the ED the patient initially got vancomycin and Zosyn, but after vancomycin was given patient stated that she developed an allergic reaction with some facial swelling as well as tachycardia and agitation therefore she was taken off the vancomycin and given diphenhydramine. Afterwards patient was breathing comfortably without any complications. Patient was treated with doxycycline as well as Zosyn for 1 day. Her swelling slightly improved and she did not have any complaints at this time. At the time of discharge patient stated that she was feeling okay with no new complaints and was stable enough to be discharged home. Discharge plan: ? Please follow-up with your primary care physician within 1 week after discharge ? You were started on Augmentin 875 mg BID and Doxycycline 100 mg BID ?Please come back to the ER if symptoms persist or worsen Problem list: #Right lower extremity cellulitis #Sinus tachycardia #Asymptomatic bacteriuria Case disclosed with Attending Dr. Obad Milton X. Michael Reynolds PGY1 Status at Discharge Overall status at discharge: patient is progressing back to baseline Time Spent with Patient Time attestation: Total time spent providing and/or coordinating discharge services:>35 min Exam Vital Signs Temp Pulse Resp BP Pulse Ox O2 Del Method O2 Flow Rate 97.3 F 75 16 100/65 98 Room Air 5 09/22/24 08:00 09/22/24 08:00 09/22/24 08:00 09/22/24 08:00 09/22/24 08:00 09/22/24 08:00 09/21/24 14:46 Narrative Exam General: A/O x3, no acute distress, well-nourished, well-developed Eyes: PERRL, EOMI. Anicteric, vision grossly intact. Ears: No ear pain, no ear discharge, Hearing grossly intact. Nose: No nasal discharge. Mouth/Throat: Moist mucous membranes, no redness, no lesions. Neck: Neck supple, non-tender, no cervical lymphadenopathy. Lungs: Clear MAGALY to auscultation and percussion, No accessory muscle use. Cardio: Normal S1/S2, regular rhythm, no murmurs, no JVD Abdomen: Soft, non-tender, no palpable masses, peristalsis present, no guarding or rebound. Extremities: Symmetrical, no significant deformities, no peripheral edema , non-tender, peripheral pulses presents. Swollen R foot with minimal pain on palpation to medial aspect of big toe. Able to move all toes. Skin: No rashes, no lesions, warm to touch. Neuro: No focal neurological deficits. Psych: Cooperative, appropriate mood and effect. Discharge Plan Plan Patient Disposition: HOME (Self Care) Care Plan Goals: ? Please follow-up with your primary care physician within 1 week after discharge ? You were started on Augmentin 875 mg BID and Doxycycline 100 mg BID ?Please come back to the ER if symptoms persist or worsen Prescriptions/Referrals Prescriptions/Med Rec: New amoxicillin-pot clavulanate 875-125 mg tablet 1 tab PO BID 13 Days Qty: 26 0RF doxycycline hyclate 100 mg capsule 100 mg PO BID 13 Days Qty: 26 0RF Continued prenat.vits,itzel,eak-rnls-vlwej Tablet 1 tab PO QDAY lanolin 50 % ointment 1 applic topical TID PRN (Reason: skin irritation) Qty: 15 0RF ibuprofen 600 mg tablet 600 mg PO Q8H PRN (Reason: pain) Qty: 20 0RF Referrals: Murray Correa MD [Primary Care Provider] - Patient/Caregiver Discharge Instructions Other Discharge Activity Instructions:: ? Please follow-up with your primary care physician within 1 week after discharge ? You were started on Augmentin 875 mg BID and Doxycycline 100 mg BID ?Please come back to the ER if symptoms persist or worsen Education Materials: Discharge Instructions for Cellulitis Print Language: [place]al[place] Stand Alone Forms: Anita Award Info., Patient Portal Info Letter, Work/Release Restrictions Discharge Order Discharge Orders: Discharge (Routine); Ordered 09/22/24 Ordered By: Chester Weinstein Quality Discharge Quality Measures VTE prophylaxis
== END 2024-09-22 13:20 | disposition home or self-care (01) ==
LOC: SERX 10:26 → SERHOLD 15:31 → S3NX 09-22 09:04 → SERHOLD 09-23 10:07
PROVIDERS: Admitting Provider Internal Medicine; Emergency Provider Emergency Medicine; PCP Internal Medicine; Visit Provider Internal Medicine
DX: L03.115 Cellulitis of right lower limb (principal); Z01.810 Encounter for preprocedural cardiovascular examination; R00.0 Tachycardia, unspecified; R82.71 Bacteriuria
CPT/HCPCS: 36415; 73701; 80053; 81001; 83605; 83735; 84100; 84145; 85025; 85652; 87040; 87086; 93005; 96365; 96366; 96367; 96372; 96375; 99284; A4649; G0378; J1200; J1650; J2543; J3371; J3490; J7050; Q9967